=== PATIENT | female | born 1995 | race Caucasian/White ===

== ENCOUNTER → 2018-03-15 | Outpatient (CLI) | payer OTHER ==
[~2018-03-15] MED LIST: CODACE30 PO; IBUP800 PO; Verotin-Gr Cap1 EACH PO
[2018-03-18 06:15] LABS: CHLAMYDIA TRACHOMATIS, NAA Positive (Negative); NEISSERIA GONORRHOEAE, NAA Negative (Negative)
== END | disposition home or self-care (01) ==
LOC: LAB 15:24 → LAB SHORT 15:24
PROVIDERS: Obstetrics & Gynecology
DX: Z01.419 Encounter for gynecological examination (general) (routine) without abnormal findings (principal); Z11.3 Encounter for screening for infections with a predominantly sexual mode of transmission
CPT/HCPCS: 87491; 87591; G0123

== ENCOUNTER → 2018-05-24 | Outpatient (CLI) | payer OTHER ==
[2018-05-27 03:11] LABS: CHLAMYDIA TRACHOMATIS, NAA Positive (Negative); NEISSERIA GONORRHOEAE, NAA Negative (Negative)
== END | disposition home or self-care (01) ==
LOC: LAB SHORT 14:42 → LAB 14:42
PROVIDERS: Obstetrics & Gynecology
DX: Z11.3 Encounter for screening for infections with a predominantly sexual mode of transmission (principal)
CPT/HCPCS: 87491; 87591

== ENCOUNTER → 2018-10-24 | Outpatient (CLI) | payer OTHER ==
[2018-10-25 14:17] LABS: Candida species (DNA Probe) Negative (NEGATIVE); G. vaginalis (DNA Probe) Positive (NEGATIVE); T. vaginalis (DNA Probe) Negative (NEGATIVE)
== END ==
LOC: LAB UCHC 09:30 → LAB SHORT 09:30 → LAB 09:30
PROVIDERS: Registered Nurse Community Health
DX: N89.8 Other specified noninflammatory disorders of vagina (principal); R53.83 Other fatigue
CPT/HCPCS: 87480; 87510; 87660

== ENCOUNTER 2019-10-26 19:44 | Emergency (ER) | payer OTHER ==
[~2019-10-26] VITALS: Ht 177.8 cm; Wt 97.5 kg
== END 2019-10-26 21:54 | disposition home or self-care (01) ==
LOC: ER 19:44
DX: S93.402A Sprain of unspecified ligament of left ankle, initial encounter (principal); X50.1XXA Overexertion from prolonged static or awkward postures, initial encounter; W10.9XXA Fall (on) (from) unspecified stairs and steps, initial encounter; Y93.01 Activity, walking, marching and hiking
CPT/HCPCS: 73610; 99283-25

== ENCOUNTER 2022-10-25 19:33 | Emergency (ER) | payer OTHER ==
[~2022-10-25] VITALS: Ht 177.8 cm; Wt 104.3 kg
[2022-10-25 19:59] VITALS: BP 161/99
== END 2022-10-25 21:57 | disposition home or self-care (01) ==
LOC: ER 19:33
DX: K08.89 Other specified disorders of teeth and supporting structures (principal); R51.9 Headache, unspecified
CPT/HCPCS: 96374; 96375; 99283-25; J0780; J1200; J1885

== ENCOUNTER → 2025-01-12 | Outpatient (CLI) | payer OTHER ==
[2025-01-16 16:23] LABS: APTIMA MEDIA TYPE Urine; C. TRACHOMATIS BY TMA Negative (Negative); N. GONORRHOEAE BY TMA Negative (Negative)
== END | disposition home or self-care (01) ==
LOC: LAB 12:07 → LAB SHORT 12:07
PROVIDERS: Family Medicine
DX: R30.0 Dysuria (principal)
CPT/HCPCS: 87086; 87491; 87591